=== PATIENT | male | born 1995 | race Caucasian/White ===

== ENCOUNTER 2018-09-23 11:49 | Emergency (ER) | payer OTHER ==
[~2018-09-23] VITALS: Ht 172.7 cm; Wt 91.2 kg
[2018-09-23 11:53] VITALS: BP 153/82; PULSE 97; RESP 18; Ht 172.7 cm; Wt 91.2 kg
[2018-09-23] MEDS ORDERED: ONDANSETRON (ODT) 4 MG TAB ODT STA (13:35)
[2018-09-23] MEDS ORDERED: LORA1TAB PO (14:40)
--- NOTE | 2018-09-23 14:43 | ERD ---
ER Documentation Chief Complaint Chief Complaint pt bib self with c/o last drink was 9pm, shaking , nausea, pain all over HPI This is a 22-year-old male who is an alcohol abuser who tells me that he has stopped drinking as of yesterday. He says is causing too much stress in his life and he lost custody of his kids recently and having some other life/family issues. He tells me that he is not homicidal and he is not suicidal. He says he would like something because he is craving alcohol getting a little shaky here and there but is not having any seizures vomiting chest pain headache. He wants something to keep his nerves calm he states he is also asking for resources for drinking and for someone to talk to about his life problems ROS All systems reviewed and are negative except as per history of present illness. Medications Home Meds Active Scripts Lorazepam* (Lorazepam*) 1 Mg Tablet, 1 MG PO Q8H PRN for ANXIETY, #10 TAB Prov:FIDEL BURR DO 09/23/18 Allergies Allergies: Coded Allergies: No Known Allergy (Unverified , 09/23/18) FmHx Family History: No coronary disease Physical Exam Vitals Vital Signs Date Temp Pulse Resp B/P (MAP) Pulse Ox O2 O2 Flow FiO2 Time Delivery Rate 09/23/18 99.4 97 18 153/82 99 11:53 (105) Physical Exam Const: Well-developed, well-nourished Head: Atraumatic, normocephalic Eyes: Normal Conjunctiva, PERRLA, EOMI, normal sclera, no nystagmus ENT: Normal External Ears, Nose and Mouth, moist mucus membranes. Neck: Full range of motion. No meningismus, no lymphadenopathy. Resp: Clear to auscultation bilaterally, no wheezing, rhonchi, rales Cardio: Regular rate and rhythm, no murmurs, S1 S2 present Abd: Soft, non tender x 4, non distended. Normal bowel sounds, no guarding or rebound, no pulsitile abdominal masses or bruits Skin: No petechiae or rashes, no ecchymosis , no maculopapular rash Back: No midline or flank tenderness Ext: No cyanosis, or edema, FROM x 4, normal inspection, neurovascularly intact x 4 Neur: Awake and alert, STR 5/5 x 4, sensation intact x 4, no focal findings, cerebellum intact Psych: Normal Mood and Affect Results 24 hrs Current Medications Medications Dose Sig/Placido Start Time Status Last (Trade) Ordered Route PRN Stop Time Admin Dose Reason Admin Ondansetron 8 mg ONCE STAT 09/23/18 DC 09/23/18 HCl (Zofran ODT 13:35 13:50 Odt) 09/23/18 13:36 Procedures/MDM Patient is not in florid alcohol withdrawal. I will discharge him home with some Ativan and will have case management social worker can give him some resources for follow- up Departure Diagnosis: Primary Impression: Alcohol withdrawal Complication of substance-induced condition: uncomplicated Qualified Codes: F10.230 - Alcohol dependence with withdrawal, uncomplicated Additional Impression: Abstains from alcohol consumption Condition: Stable Patient Instructions: Alcohol Withdrawal FIDEL BURR DO Sep 23, 2018 14:43
[2018-09-23] MEDS ORDERED: LORAZEPAM 1 MG TAB PO ONE (15:00)
== END 2018-09-23 15:37 | disposition home or self-care (01) ==
LOC: E/R 11:49
DX: F10.230 Alcohol dependence with withdrawal, uncomplicated (principal)
CPT/HCPCS: Z7502; Z7610; 93005; 99283